=== PATIENT | male | born 1965 | race African-American/Black ===

== ENCOUNTER 2018-01-13 19:42 | Inpatient (IN) | payer OTHER ==
[2018-01-13] MEDS ORDERED: LORAZEPAM 2 MG INJ IV (21:00)
[2018-01-13] MEDS: DEXTROSE 5%-0.45% NACL 1,000 ML IV (21:30)
[2018-01-13] MEDS: ASPIRIN 325 MG TAB PO (23:09)
[2018-01-14] LABS: CK-MB 1.62 ng/ml (0.0-2.4)
[2018-01-14] LABS: TROPONIN-I < 0.012 ng/ml (0.000-0.120)
[2018-01-14] MEDS: DEXTROSE 5%-0.45% NACL 1,000 ML IV ×4 (05:29→16:08)
[2018-01-14] MEDS ORDERED: LORAZEPAM 2 MG INJ IV (05:30)
[2018-01-14] MEDS ORDERED: NACL 0.9% 3 ML SYG IV (05:30)
[2018-01-14] MEDS ORDERED: ALBUTEROL/IPRATROPIUM (NEB) 3 ML AMP HHN (05:30)
[2018-01-14] MEDS ORDERED: ONDANSETRON 4 MG INJ IV (05:30)
[2018-01-14 07:34] LABS: ADD MAN DIFF? NO
[2018-01-14 07:39] LABS: WHITE BLOOD COUNT 5.2 10^3/ul (4.8-10.8)
[2018-01-14 07:39] LABS: BASOPHILS % 0.8 % (0.0-2.0); EOSINOPHILS # 0.1 10^3/ul (0.0-0.5); EOSINOPHILS % 1.2 % (0.0-7.0); HEMATOCRIT 46.7 % (42.0-52.0); HEMOGLOBIN 15.8 g/dl (14.0-18.0); LYMPHOCYTES # 1.2 10^3/ul (0.8-2.9); LYMPHOCYTES % 23.8 % (15.0-51.0); MEAN CORPUSCULAR HEMOGLOBIN 31.2 pg (29.0-33.0); MEAN CORPUSCULAR HGB CONC 33.8 g/dl (32.0-37.0); MEAN CORPUSCULAR VOLUME 92.3 fl (82.0-101.0); MEAN PLATELET VOLUME 10.3 fl (7.4-10.4); MONOCYTE # 0.5 10^3/ul (0.3-0.9); MONOCYTES % 10.1 % (0.0-11.0); NEUTROPHIL # 3.3 10^3/ul (1.6-7.5); NEUTROPHILS % 63.7 % (39.0-77.0); PLATELET COUNT 249 10^3/UL (140-415); RED BLOOD COUNT 5.06 10^6/ul (4.70-6.10); RED CELL DISTRIBUTION WIDTH 13.5 % (11.5-14.5)
[2018-01-14 08:05] LABS: ALANINE AMINOTRANSFERASE 31 IU/L (13-69); ALBUMIN 3.5 g/dl (3.3-4.9); ALBUMIN/GLOBULIN RATIO 1.16; ALKALINE PHOSPHATASE 80 IU/L (42-121); ANION GAP 11 (8-16); ASPARTATE AMINO TRANSFERASE 20 IU/L (15-46); BILIRUBIN,INDIRECT 0.5 mg/dl (0-1.1); BILIRUBIN,TOTAL 0.5 mg/dl (0.2-1.3); BLOOD UREA NITROGEN 10 mg/dl (7-20); CALCIUM 8.9 mg/dl (8.4-10.2); CARBON DIOXIDE 31 mmol/L (21-31); CHLORIDE 106 mmol/L (97-110); CREATININE 0.91 mg/dl (0.61-1.24); GLUCOSE 92 mg/dl (70-220); MAGNESIUM 2.2 mg/dl (1.7-2.5); PHOSPHORUS 4.1 mg/dl (2.5-4.9); POTASSIUM 4.2 mmol/L (3.5-5.1); SODIUM 144 mmol/L (135-144); TOTAL PROTEIN 6.5 g/dl (6.1-8.1)
[2018-01-14 08:07] LABS: TROPONIN-I < 0.010 ng/ml (0.000-0.120)
[2018-01-14 08:07] LABS: CK-MB 1.06 ng/ml (0.0-2.4)
[2018-01-14 08:32] LABS: PHENYTOIN (DILANTIN) 15.1 ug/ml (10.0-20.0)
[2018-01-14] MEDS: HEPARIN 5,000 UNIT/0.5 ML VIAL SC ×2 (09:11→21:22)
[2018-01-14] MEDS: PHENYTOIN 100 MG CAP PO (09:14)
[2018-01-14 10:46] LABS: TROPONIN-I 0.012 ng/ml (0.000-0.120)
[2018-01-14 10:50] LABS: CK-MB 0.97 ng/ml (0.0-2.4)
[2018-01-14 12:10] LABS: ADD UMIC NO; UR ASCORBIC ACID NEGATIVE (NEGATIVE); UR BILIRUBIN (Dip) NEGATIVE (NEGATIVE); UR BLOOD (Dip) NEGATIVE (NEGATIVE); UR CLARITY CLEAR (CLEAR); UR COLOR YELLOW (YELLOW); UR GLUCOSE (Dip) NEGATIVE (NEGATIVE); UR KETONES (Dip) NEGATIVE (NEGATIVE); UR LEUKOCYTE ESTERASE (Dip) NEGATIVE Leu/ul (NEGATIVE); UR NITRITE (Dip) NEGATIVE (NEGATIVE); UR SPECIFIC GRAVITY (Dip) 1.009 (1.003-1.030); UR TOTAL PROTEIN (Dip) NEGATIVE (NEGATIVE); UR UROBILINOGEN (Dip) NEGATIVE (NEGATIVE)
[2018-01-14 12:23] LABS: AMPHETAMINE/METHAMPHETAMINE Negative (NEGATIVE); BARBITURATES Negative (NEGATIVE); CANNABINOIDS Negative (NEGATIVE)
[2018-01-14 12:24] LABS: BENZODIAZEPINES Negative (NEGATIVE); COCAINE Positive (NEGATIVE); OPIATES Negative (NEGATIVE)
[2018-01-14] MEDS ORDERED: GLUCAGON 1 MG INJ IM (14:30)
[2018-01-14] MEDS ORDERED: GLUCOSE GEL 15 GRAM TUBE PO ×2 (14:30)
[2018-01-14] MEDS ORDERED: GLUCOSE GEL 15 GRAM TUBE BUCCAL (14:30)
[2018-01-14] MEDS ORDERED: DEXTROSE 50% 50 ML SYRINGE IV ×2 (14:30)
[2018-01-14 14:59] LABS: HEMOGLOBIN A1C 5.6 % (0-5.9)
[2018-01-14] MEDS: metFORMIN 500 MG TAB PO (17:25)
[2018-01-14] MEDS: INSULIN ASPART [NOVOLOG] 3 ML PEN SC ×2 (17:30→21:00)
[2018-01-14] MEDS: ACETAMINOPHEN 325 MG TAB PO (21:28)
[2018-01-15] MEDS: DEXTROSE 5%-0.45% NACL 1,000 ML IV ×6 (01:25→23:00)
[2018-01-15] MEDS: INSULIN ASPART [NOVOLOG] 3 ML PEN SC ×4 (08:00→21:00)
[2018-01-15 08:49] LABS: ADD MAN DIFF? NO
[2018-01-15] MEDS: PHENYTOIN 100 MG CAP PO (08:49)
[2018-01-15] MEDS: metFORMIN 500 MG TAB PO (08:49)
[2018-01-15] MEDS: HEPARIN 5,000 UNIT/0.5 ML VIAL SC ×2 (08:51→21:08)
[2018-01-15 08:54] LABS: WHITE BLOOD COUNT 4.6 10^3/ul (4.8-10.8)
[2018-01-15 08:54] LABS: BASOPHILS % 0.6 % (0.0-2.0); EOSINOPHILS # 0.1 10^3/ul (0.0-0.5); EOSINOPHILS % 1.3 % (0.0-7.0); HEMATOCRIT 45.1 % (42.0-52.0); LYMPHOCYTES # 1.1 10^3/ul (0.8-2.9); LYMPHOCYTES % 23.3 % (15.0-51.0); MEAN CORPUSCULAR HGB CONC 33.3 g/dl (32.0-37.0); MEAN CORPUSCULAR VOLUME 93.2 fl (82.0-101.0); MEAN PLATELET VOLUME 10.3 fl (7.4-10.4); MONOCYTE # 0.4 10^3/ul (0.3-0.9); MONOCYTES % 9.3 % (0.0-11.0); NEUTROPHILS % 65.1 % (39.0-77.0); PLATELET COUNT 240 10^3/UL (140-415); RED BLOOD COUNT 4.84 10^6/ul (4.70-6.10); RED CELL DISTRIBUTION WIDTH 13.2 % (11.5-14.5)
[2018-01-15 09:17] LABS: ALANINE AMINOTRANSFERASE 22 IU/L (13-69); ALBUMIN 3.3 g/dl (3.3-4.9); ALKALINE PHOSPHATASE 88 IU/L (42-121); ANION GAP 12 (8-16); ASPARTATE AMINO TRANSFERASE 18 IU/L (15-46); BILIRUBIN,INDIRECT 0.2 mg/dl (0-1.1); BILIRUBIN,TOTAL 0.2 mg/dl (0.2-1.3); BLOOD UREA NITROGEN 14 mg/dl (7-20); CALCIUM 8.6 mg/dl (8.4-10.2); CARBON DIOXIDE 31 mmol/L (21-31); CHLORIDE 105 mmol/L (97-110); CREATININE 0.99 mg/dl (0.61-1.24); GLUCOSE 118 mg/dl (70-220); MAGNESIUM 1.9 mg/dl (1.7-2.5); POTASSIUM 3.9 mmol/L (3.5-5.1); SODIUM 144 mmol/L (135-144); TOTAL PROTEIN 6.3 g/dl (6.1-8.1)
[2018-01-15] MEDS: HYDROCODONE/APAP (5/325) TAB GTB ×2 (09:44→17:34)
[2018-01-16] MEDS: DEXTROSE 5%-0.45% NACL 1,000 ML IV ×5 (02:35→21:03)
[2018-01-16] MEDS: INSULIN ASPART [NOVOLOG] 3 ML PEN SC ×4 (08:00→21:00)
[2018-01-16] MEDS: PHENYTOIN 100 MG CAP PO (08:18)
[2018-01-16] MEDS: HYDROCODONE/APAP (5/325) TAB GTB ×2 (08:19→19:51)
[2018-01-16] MEDS: HEPARIN 5,000 UNIT/0.5 ML VIAL SC ×2 (08:21→21:05)
[2018-01-17] MEDS: DEXTROSE 5%-0.45% NACL 1,000 ML IV ×3 (06:39→16:35)
[2018-01-17] MEDS: INSULIN ASPART [NOVOLOG] 3 ML PEN SC ×4 (08:00→20:43)
[2018-01-17] MEDS: PHENYTOIN 100 MG CAP PO (08:06)
[2018-01-17] MEDS: HEPARIN 5,000 UNIT/0.5 ML VIAL SC ×2 (08:14→20:43)
[2018-01-17] MEDS: HYDROCODONE/APAP (5/325) TAB GTB (15:38)
[2018-01-18] MEDS: HYDROCODONE/APAP (5/325) TAB GTB ×3 (03:34→15:04)
[2018-01-18] MEDS: DEXTROSE 5%-0.45% NACL 1,000 ML IV ×2 (03:34→17:55)
[2018-01-18] MEDS: INSULIN ASPART [NOVOLOG] 3 ML PEN SC ×4 (08:00→21:00)
[2018-01-18] MEDS: HEPARIN 5,000 UNIT/0.5 ML VIAL SC ×2 (08:54→21:19)
[2018-01-18] MEDS: PHENYTOIN 100 MG CAP PO (08:54)
[2018-01-19] MEDS: DEXTROSE 5%-0.45% NACL 1,000 ML IV ×2 (05:15→16:46)
[2018-01-19] MEDS: INSULIN ASPART [NOVOLOG] 3 ML PEN SC ×4 (07:57→20:19)
[2018-01-19] MEDS: PHENYTOIN 100 MG CAP PO (08:51)
[2018-01-19] MEDS: HEPARIN 5,000 UNIT/0.5 ML VIAL SC ×2 (08:51→20:14)
[2018-01-19] MEDS: HYDROCODONE/APAP (5/325) TAB GTB ×3 (10:26→20:12)
[2018-01-20] MEDS: DEXTROSE 5%-0.45% NACL 1,000 ML IV ×2 (03:25→12:22)
[2018-01-20] MEDS: HYDROCODONE/APAP (5/325) TAB GTB ×2 (03:59→08:58)
[2018-01-20] MEDS: INSULIN ASPART [NOVOLOG] 3 ML PEN SC ×2 (08:00→12:00)
[2018-01-20] MEDS: PHENYTOIN 100 MG CAP PO (08:58)
[2018-01-20] MEDS: HEPARIN 5,000 UNIT/0.5 ML VIAL SC (09:00)
== END 2018-01-20 15:00 | disposition home or self-care (01) | DRG 101 ==
LOC: PP2 01-17 11:20 → MS4 19:42
PROVIDERS: Hospitalist
DX: G40.909 Epilepsy, unspecified, not intractable, without status epilepticus (principal); I10 Essential (primary) hypertension; E11.9 Type 2 diabetes mellitus without complications; Z98.890 Other specified postprocedural states; Z91.14 Patient's other noncompliance with medication regimen; Z59.0 Homelessness
CPT/HCPCS: 70551; 71045; 80053; 80185; 80307; 81003; 82553; 82962; 83036; 83735; 84100; 84484; 85025; 87081; 92610; 93005; 97110; 97116; 97162; 97530